=== PATIENT | female | born 1985 | race African-American/Black ===

== ENCOUNTER 2019-10-08 09:58 | Emergency (ER) | payer MEDICAID ==
[~2019-10-08] VITALS: Ht 165.1 cm; Wt 83.5 kg
[2019-10-08 10:04] VITALS: BP 128/79
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
[2019-10-08] MEDS ORDERED: Acetaminophen 500mg (ES) tab PO ONE (10:30)
--- NOTE | 2019-10-08 10:31 | NUR ---
ED Nurse Note: Xray at bedside
--- NOTE | 2019-10-08 10:47 | Diagnostic Imaging Report ---
EXAM: XR Right Hand Complete, 3 or More Views CLINICAL HISTORY: PAIN TECHNIQUE: Frontal, lateral and oblique views of the right hand. COMPARISON: None FINDINGS: Bones/joints: No displaced fracture or dislocation identified. Joint space is maintained. Osteopenia. Soft tissues: Normal. IMPRESSION: No displaced fracture or dislocation identified.
[2019-10-08] MEDS ORDERED: TYLENOL EXTRA500 MG ORAL (10:56)
[2019-10-08 11:00] VITALS: BP 128/79
--- NOTE | 2019-10-08 11:00 | NUR ---
ED DISCHARGE NOTE: Patient cleared for DC by Dr. Singh. Left 4th digit finger splint applied. Patient AxO x 4, VSS. Patient verbalized understanding of DC instructions. Patient ID band removed. Patient ambulates with steady gait and took all belongings.
== END 2019-10-08 11:00 | disposition home or self-care (01) ==
LOC: EMR 10:22
DX: S63.634A Sprain of interphalangeal joint of right ring finger, initial encounter (principal); Y93.83 Activity, rough housing and horseplay
CPT/HCPCS: 29130; 73130; Z7502; 99283